=== PATIENT | female | born 1960 | race Caucasian/White ===

== ENCOUNTER 2022-07-16 20:16 | Emergency (ER) | payer BC ==
[2022-07-16] MEDS ORDERED: Acetaminophen/HYDROcodone 325-10 MG Tab PO ONE (20:17)
[2022-07-16] MEDS ORDERED: Ketorolac 10 MG Tab PO ONE (20:17)
[2022-07-16] MEDS ORDERED: Tamsulosin 0.4 MG Cap.ER PO ONE ×2 (20:17→21:33)
[2022-07-16] MEDS ORDERED: Morphine 2 MG/ML SYRINGE IVPUSH ONE (20:46)
[2022-07-16] MEDS ORDERED: Ondansetron 4 MG/2 ML SDV IVPUSH ONE (20:46)
[2022-07-16] MEDS ORDERED: HYDROmorphone 0.5 MG/0.5 ML Syringe IVPUSH ONE (21:13)
[2022-07-16] MEDS ORDERED: Ketorolac 30 MG/ML SDV IVPUSH ONE (21:33)
[2022-07-16] MEDS ORDERED: Sodium Chloride 0.9% 1,000 ML IV ONE (21:33)
[2022-07-16] MEDS ORDERED: Ketorolac 10 MG Tab ONE (21:59)
[2022-07-16] MEDS ORDERED: Tamsulosin 0.4 MG Cap.ER ONE (21:59)
[2022-07-16] MEDS ORDERED: Acetaminophen/HYDROcodone 325-10 MG Tab ONE (22:07)
== END 2022-07-16 22:30 | disposition home or self-care (01) ==
LOC: DL.ED 20:16
DX: N20.0 Calculus of kidney (principal); E78.00 Pure hypercholesterolemia, unspecified; K21.9 Gastro-esophageal reflux disease without esophagitis; Z88.0 Allergy status to penicillin; Z88.8 Allergy status to other drugs, medicaments and biological substances; Z79.899 Other long term (current) drug therapy
CPT/HCPCS: 74176; 81001; 87086; 96361; 96374; 96375; 99284; A9270; J1170; J1885; J2270; J2405; J7030